=== PATIENT | male | born 1945 | race Asian ===

== ENCOUNTER 2017-07-31 00:48 | Emergency (ER) | payer MEDICARE ==
[~2017-07-31] VITALS: Ht 152.4 cm; Wt 63.6 kg
[2017-07-31 01:42] LABS: BLOOD UREA NITROGEN 16 mg/dL (7-18)
[2017-07-31 02:09] VITALS: BP 137/85
== END 2017-07-31 03:05 | disposition home or self-care (01) ==
LOC: ED 02:45
DX: R33.9 Retention of urine, unspecified (principal)
CPT/HCPCS: 36415; 51702; 80048; 81003; 99284